=== PATIENT | male | born 2000 | race Two or more races ===

== ENCOUNTER 2019-02-22 09:55 | Inpatient (IN) | payer MEDICAID ==
[~2019-02-22] VITALS: Ht 180.3 cm; Wt 97.5 kg
[2019-02-22 14:06] VITALS: BP 124/77
[2019-02-22] MEDS ORDERED: ZOLPIDEM TARTRATE 10 MG TABLET PO PRN (14:30)
[2019-02-22] MEDS ORDERED: ARIP10TA8 PO (14:32)
[2019-02-22] MEDS ORDERED: PNEUMOCOCCAL VACCINE POLYVALENT 0.5 ML VIAL [PPSV23] IM ONE (15:00)
[2019-02-23] MEDS ORDERED: PETROLATUM,WHITE 28 GM JELLY TP PRN (08:15)
[2019-02-23] MEDS ORDERED: LOPERAMIDE HCL 2 MG CAPSULE PO PRN (08:15)
[2019-02-23] MEDS ORDERED: ONDANSETRON HCL 4 MG TABLET PO PRN (08:15)
[2019-02-23] MEDS ORDERED: MAGNESIUM HYDROXIDE SUSPENSION 30 ML UDCUP PO PRN (08:15)
[2019-02-23] MEDS ORDERED: DOCUSATE SODIUM 100 MG CAPSULE PO PRN (08:15)
[2019-02-23] MEDS ORDERED: OMEPRAZOLE 20 MG CAPSULE PO PRN (08:15)
[2019-02-23] MEDS ORDERED: IBUPROFEN 600 MG TABLET PO PRN (08:15)
[2019-02-23] MEDS ORDERED: BACITRACIN 28.4 GM OINTMENT TP PRN (08:15)
[2019-02-23] MEDS ORDERED: BENZOCAINE/MENTHOL LOZENGE MM PRN (08:15)
[2019-02-23] MEDS ORDERED: MAG HYDROX/AL HYDROX/SIMETH ES 30 ML SUSPENSION UDCUP PO PRN (08:15)
[2019-02-23] MEDS ORDERED: CloNIDine HCL 0.1 MG TABLET PO PRN (08:15)
[2019-02-23] MEDS ORDERED: ALBUTEROL SULFATE HFA 90 MCG/PUFF 8 GM INHALER IH PRN (08:15)
[2019-02-23] MEDS ORDERED: ACETAMINOPHEN 325 MG TABLET PO PRN (08:15)
[2019-02-23] MEDS: LORazepam 2 MG TABLET PO PRN ×2 (08:20→16:54)
[2019-02-23] MEDS: RisperiDONE 3 MG TABLET PO SCH ×2 (08:20→16:54)
[2019-02-23] MEDS: HALOPERIDOL 5 MG TABLET PO PRN ×2 (08:20→16:54)
[2019-02-23 16:00] VITALS: BP 107/84
[2019-02-24 08:11] LABS: BAND NEUTROPHILS % (MANUAL) 0 % (0-5)
[2019-02-24 08:14] VITALS: BP 140/79
[2019-02-24 08:58] LABS: ANION GAP 5 mmol/L (8-16); CALCIUM, TOTAL 8.7 mg/dL (8.8-10.5); CARBON DIOXIDE 30 mmol/L (22-29); CHLORIDE 103 mmol/L (98-107); CHOL/HDL RATIO 5.7 (4.2-7.3); CHOLESTEROL 159 mg/dL (131-200); CREATININE 1.14 mg/dL (0.60-1.30); GLOMERULAR FILTR. RATE CALC > 60 mL/min (>60); GLUCOSE,RANDOM 76 mg/dL (70-110); HDL CHOLESTEROL 28 mg/dL (40-60); HEMATOCRIT 50.3 % (41-53); HEMOGLOBIN 16.9 g/dL (13.5-17.5); LDL CHOL (CALC.) 101 mg/dL (0-130); MEAN CORPUSCULAR HGB CONC 33.7 G/dL (31.0-37.0); MEAN CORPUSCULAR VOLUME 89 fL (80-100); PHOSPHORUS 3.2 mg/dL (2.5-4.9); PLATELET COUNT (AUTO) 178 K/uL (150-450); POTASSIUM 3.9 mmol/L (3.5-5.1); RED BLOOD CELL COUNT(AUTO) 5.66 MIL/uL (4.50-5.90); RED CELL DISTRIBUTION WIDTH 13.8 % (11.5-14.5); SODIUM SERUM 138 mmol/L (136-145); THYROID STIMULATING HORMONE 1.28 uIU/mL (0.36-3.74); TRIGLYCERIDES 150 mg/dL (15-150); UREA NITROGEN, BLOOD 10 mg/dL (7-18)
[2019-02-24] MEDS: RisperiDONE 3 MG TABLET PO SCH ×2 (09:07→16:52)
[2019-02-24 10:01] LABS: EOSINOPHILS % (MANUAL) 3 % (1-6); LYMPHOCYTES % (MANUAL) 41 % (22-44); MONOCYTES % (MANUAL) 9 % (2-9); SEGMENTED NEUTROPHILS % 47 % (40-70)
[2019-02-25 05:47] VITALS: BP 135/90
[2019-02-25] MEDS: RisperiDONE 3 MG TABLET PO SCH ×4 (08:43→17:00)
[2019-02-25 16:34] VITALS: BP 138/67
[2019-02-26 06:15] VITALS: BP 132/83
[2019-02-26 08:20] VITALS: BP 142/78
[2019-02-26] MEDS: RisperiDONE 3 MG TABLET PO SCH ×3 (09:00→16:36)
[2019-02-26 16:27] VITALS: BP 131/84
[2019-02-27 06:42] VITALS: BP 143/92
[2019-02-27] MEDS: RisperiDONE 3 MG TABLET PO SCH ×2 (09:28→16:38)
[2019-02-27 16:15] VITALS: BP 153/87
[2019-02-28 04:44] VITALS: BP 132/78
[2019-02-28] MEDS: RisperiDONE 3 MG TABLET PO SCH ×2 (09:00→16:52)
[2019-02-28 16:11] VITALS: BP 125/72
[2019-03-01 04:33] VITALS: BP 135/88
[2019-03-01 08:38] VITALS: BP 122/73
[2019-03-01] MEDS: RisperiDONE 3 MG TABLET PO SCH ×2 (08:45→17:00)
[2019-03-01 17:08] VITALS: BP 118/62
[2019-03-02 03:31] VITALS: BP 129/74
[2019-03-02 09:00] VITALS: BP 117/72
[2019-03-02] MEDS: RisperiDONE 3 MG TABLET PO SCH ×2 (09:00→17:00)
[2019-03-02 16:13] VITALS: BP 138/76
[2019-03-03 05:52] VITALS: BP 132/72
[2019-03-03 08:18] VITALS: BP 121/65
[2019-03-03] MEDS: RisperiDONE 3 MG TABLET PO SCH ×2 (09:00→16:31)
[2019-03-03 16:10] VITALS: BP 135/80
[2019-03-04 05:14] VITALS: BP 124/82
[2019-03-04 08:31] VITALS: BP 130/67
[2019-03-04] MEDS: RisperiDONE 3 MG TABLET PO SCH ×2 (09:00→16:03)
[2019-03-04 16:35] VITALS: BP 126/87
[2019-03-05 05:39] VITALS: BP 118/65
[2019-03-05] MEDS: RisperiDONE 3 MG TABLET PO SCH ×2 (09:00→16:47)
[2019-03-05 16:13] VITALS: BP 133/81
[2019-03-05] MEDS ORDERED: HALOPERIDOL LACTATE 5 MG/ML VIAL ONE (19:10)
[2019-03-05] MEDS ORDERED: DiphenhydrAMINE HCL 50 MG/ML VIAL ONE (19:10)
[2019-03-05] MEDS ORDERED: LORazepam 2 MG/ML VIAL ONE (19:10)
[2019-03-05] MEDS ORDERED: LORazepam 2 MG/ML VIAL IM ONE (19:15)
[2019-03-05] MEDS ORDERED: DiphenhydrAMINE HCL 50 MG/ML VIAL IM ONE (19:15)
[2019-03-05] MEDS ORDERED: HALOPERIDOL LACTATE 5 MG/ML VIAL IM ONE (19:15)
[2019-03-06 06:29] VITALS: BP 129/88
[2019-03-06 08:11] VITALS: BP 108/63
[2019-03-06] MEDS: RisperiDONE 3 MG TABLET PO SCH ×2 (09:00→16:53)
[2019-03-06 16:16] VITALS: BP 102/50
[2019-03-07 06:41] VITALS: BP 142/91
[2019-03-07 08:06] VITALS: BP 128/74
[2019-03-07] MEDS: RisperiDONE 3 MG TABLET PO SCH ×3 (08:11→16:42)
[2019-03-07 16:30] VITALS: BP 142/77
[2019-03-08 06:14] VITALS: BP 145/92
[2019-03-08 08:28] VITALS: BP 116/49
[2019-03-08] MEDS: RisperiDONE 3 MG TABLET PO SCH ×2 (09:53→17:14)
[2019-03-08 16:00] VITALS: BP 134/73
[2019-03-08] MEDS ORDERED: RisperiDONE MICROSPHERES 37.5 MG/2 ML SYRINGE IM SCH (17:00)
[2019-03-09 06:12] VITALS: BP 130/76
[2019-03-09 08:21] VITALS: BP 134/74
[2019-03-09] MEDS: RisperiDONE 3 MG TABLET PO SCH (09:14)
[2019-03-09] MEDS ORDERED: RISPC375 IM (13:28)
[2019-03-09] MEDS ORDERED: RISP3TAB44 PO (13:28)
== END 2019-03-09 15:19 | disposition home or self-care (01) | DRG 750 ==
LOC: B3A 14:27
PROVIDERS: ADMIT Psychiatry & Neurology Psychiatry; ATTEND Psychiatry & Neurology Psychiatry
DX: F25.0 Schizoaffective disorder, bipolar type (principal); F41.9 Anxiety disorder, unspecified; G47.00 Insomnia, unspecified; Z28.21 Immunization not carried out because of patient refusal; K59.00 Constipation, unspecified
CPT/HCPCS: 83735; 84100; 84443; 85007; 90732; J1200; J1630; J2060; J2794